=== PATIENT | male | born 1990 ===

== ENCOUNTER 2021-08-10 18:22 | Emergency (ER) | payer SELFPAY ==
--- NOTE | 2021-08-10 18:43 | EDM.PDOC ---
<Alexis Garcia - Last Filed: 08/10/21 18:40> ED HPI GENERAL MEDICAL PROBLEM - General Chief Complaint: Respiratory Problem Stated Complaint: FEVER Time Seen by Provider: 08/10/21 18:34 Source of Information: Reports: Patient - History of Present Illness INITIAL COMMENTS - FREE TEXT/NARRATIVE: 31-year-old male presents to the emergency department complaining of fever. He has been sick for just over 48 hours. Is complaining of sore throat and cough and some body aches. Patient is immunized against Not Covid. He has not received the influenza vaccine this year. Moderate symptoms. No alleviating or exacerbating factors. Patient denies any shortness of breath. No history of blood clots. No unilateral leg swelling. No recent travel or injury or cancer or swelling. Patient denies any chest pain. Treatments [employer]: Reports: Other (see below) Other Treatments [employer]: theraflu - Related Data Allergies Allergy/AdvReac Type Severity Reaction Status Date / Time No Known Allergies Allergy Verified 08/10/21 18:24 Home Meds: Home Meds . [No Known Home Meds] 08/10/21 [History] Past Medical History HEENT History: Reports: None Cardiovascular History: Reports: None Respiratory History: Reports: None Gastrointestinal History: Reports: None Genitourinary History: Reports: None Musculoskeletal History: Reports: None Neurological History: Reports: None Psychiatric History: Reports: None Endocrine/Metabolic History: Reports: None Hematologic History: Reports: None Immunologic History: Reports: None Oncologic (Cancer) History: Reports: None Dermatologic History: Reports: None - Infectious Disease History Infectious Disease History: Reports: None - Past Surgical History Head Surgeries/Procedures: Reports: None GI Surgical History: Reports: Appendectomy Social & Family History - Family History Family Medical History: No Pertinent Family History - Tobacco Use Tobacco Use Status *Q: Former Tobacco User Used Tobacco, but Quit: Yes Month/Year Tobacco Last Used: 04/2021 - Caffeine Use Caffeine Use: Reports: Coffee, Energy Drinks, Soda - Recreational Drug Use Recreational Drug Use: No ED ROS GENERAL - Review of Systems Review Of Systems: See Below Constitutional: Reports: Fever, Chills Respiratory: Reports: Cough. Denies: Shortness of Breath Cardiovascular: Denies: Chest Pain GI/Abdominal: Denies: Diarrhea, Vomiting Musculoskeletal: Reports: Muscle Pain Skin: Reports: No Symptoms Neurological: Reports: No Symptoms ED EXAM, GENERAL - Physical Exam Exam: See Below Free Text/Narrative:: CONSTITUTIONAL: well appearing in no acute distress SKIN: dry, and intact without rash HENT: Normocephalic, atraumatic,. Oropharynx with some erythema but no peritonsillar abscess or marked exudates NECK: normal range of motion PULMONARY: normal chest rise and fall, no respiratory distress or stridor no rales or rhonchi or wheezing NEUROLOGIC: normal speech, moves all extremities, grossly non-focal MUSCULOSKELETAL: no gross deformities, atraumatic PSYCHIATRIC: normal mood and affect Course - Vital Signs Text/Narrative:: Differential diagnosis: Covid, influenza, strep throat, PE, pneumonia, other\ Patient presents as outlined above. Covid swab and strep and chest x-ray pending with reevaluation and treatment disposition as per Dr. Maggie ALANIZ 7 PM Departure - Departure Disposition: Home, Self-Care 01 Clinical Impression: H. influenzae infection - Discharge Information Instructions: Influenza, Adult, [id number] Forms: ED Department Discharge Additional Instructions: [id number] symptomatic treatment and plenty of fluids is all that is indicated. Avoid contact with people who are significantly ill or have transplants, immunocompromise, AIDS, or severe debilitating illness. [facility] - Primary Care [address] [place] [address] [place] [address] The following information is given to patients seen in the emergency department who are being discharged to home. This information is to outline your options for follow-up care. We provide all patients seen in our emergency department with a follow-up referral. The need for follow-up, as well as the timing and circumstances, are variable depending upon the specifics of your emergency department visit. If you don't have a primary care physician on staff, we will provide you with a referral. We always advise you to contact your personal physician following an emergency department visit to inform them of the circumstance of the visit and for follow-up with them and/or the need for any referrals to a consulting specialist. The emergency department will also refer you to a specialist when appropriate. This referral assures that you have the opportunity for follow-up care with a specialist. All of these measure are taken in an effort to provide you with optimal care, which includes your follow-up. Under all circumstances we always encourage you to contact your private physician who remains a resource for coordinating your care. When calling for follow-up care, please make the office aware that this follow-up is from your recent emergency room visit. If for any reason you are refused follow-up, please contact the [facility] Emergency Department at and asked to speak to the emergency department charge nurse. Sepsis Event Note (ED) - Evaluation Sepsis Screening Result: Possible Sepsis Risk <Alec Serrano - Last Filed: 08/10/21 19:53> Course - Vital Signs Last Recorded V/S: Last Vital Signs Temp 38.8 C H 08/10/21 18:25 Pulse 104 H 08/10/21 18:25 Resp 20 08/10/21 18:25 BP 152/89 H 08/10/21 18:25 Pulse Ox 94 L 08/10/21 18:25 - Orders/Labs/Meds Orders: Active Orders 24 hr Category Date Time Status Chest 2V [CR] Stat Exams 08/10/21 18:44 Taken Labs: Laboratory Tests 08/10/21 Range/Units 18:33 Influenza Type A RNA POSITIVE H (NEGATIVE) Influenza Type B RNA NEGATIVE (NEGATIVE) SARS-CoV-2 RNA (FRANCI) NEGATIVE (NEGATIVE) Meds: Medications Discontinued Medications Generic Name Dose Route Start Last Admin Trade Name David PRN Reason Stop Dose Admin Acetaminophen 1,000 mg 08/10/21 18:44 08/10/21 19:04 Acetaminophen 500 Mg Tab PO 08/10/21 18:45 1,000 mg ONETIME ONE Administration - Re-Assessments/Exams Free Text/Narrative Re-Assessment/Exam: 08/10/21 19:33 Sting comfortably and awaiting COVID-19 results. Departure - Departure Time of Disposition: 19:51 Condition: Good Sepsis Event Note (ED) - Focused Exam Vital Signs: Vital Signs Temp Pulse Resp BP Pulse Ox 08/10/21 18:25 38.8 C H 104 H 20 152/89 H 94 L
[2021-08-10] MEDS ORDERED: Acetaminophen 500 MG Tab PO ONE (18:44)
[2021-08-10 19:38] LABS: CORONAVIRUS COVID-19 NAA NEGATIVE (NEGATIVE); INFLUENZA A NAA POSITIVE (NEGATIVE); INFLUENZA B NAA NEGATIVE (NEGATIVE)
--- NOTE | 2021-08-10 19:57 | CR ---
INDICATION: Chest pain. TECHNIQUE: Chest 2 views. COMPARISON: None. FINDINGS: No focal consolidation, pleural effusion, or pneumothorax. Normal heart size and pulmonary vascularity. Widening of the right acromioclavicular joint likely due to prior injury. The bones are otherwise unremarkable. IMPRESSION: No acute cardiopulmonary findings. Dictated by Beverly Delong MD @ 08/10/2021 7:55:57 PM (Electronically Signed)
== END 2021-08-10 20:20 | disposition home or self-care (01) ==
LOC: MW.ED 18:22
DX: J10.1 Influenza due to other identified influenza virus with other respiratory manifestations (principal); Z87.891 Personal history of nicotine dependence; Z20.822 Contact with and (suspected) exposure to COVID-19
CPT/HCPCS: 0240U; 71046; 99283; A9270

== ENCOUNTER 2024-01-09 12:24 | Emergency (ER) | payer BC | END 2024-01-09 13:01 | disposition home or self-care (01) | LOC: MW.ED 12:24 | DX: B34.9 Viral infection, unspecified (principal); H66.93 Otitis media, unspecified, bilateral; Z79.899 Other long term (current) drug therapy; Z75.8 Other problems related to medical facilities and other health care | CPT/HCPCS: 99283 ==